=== PATIENT | male | born 1935 | race Caucasian/White ===

== ENCOUNTER 2017-02-11 11:49 | Emergency (ER) | payer MEDICARE, MEDICAID ==
[~2017-02-11] VITALS: Ht 177.8 cm; Wt 74.0 kg
[2017-02-11 12:08] VITALS: BP 103/72
== END 2017-02-11 13:09 | disposition home or self-care (01) ==
LOC: ER 12:03
DX: M67.431 Ganglion, right wrist (principal)
CPT/HCPCS: 73110; 99284; A4606; Z7610

== ENCOUNTER 2018-04-01 16:08 | Inpatient (IN) | payer MEDICARE, MEDICAID ==
[~2018-04-01] VITALS: Ht 162.6 cm; Wt 68.1 kg
--- NOTE | 2018-04-01 16:28 | NUR ---
PT BIB FAMILYC/O JAUNDICE NOTED X 3-4 DAYS AGO. C/O GENERALIZED WEAKNDESS, DIARRHEA, PT IS AAOX3, NOT IN RESPIRATORY DISTRESS, V/S STABLE KEPT RESTED AND COMFORTABLE.
--- NOTE | 2018-04-01 16:40 | NUR ---
PT SEEN AND EXAMINED BY DR. HUSSEIN.
--- NOTE | 2018-04-01 16:50 | NUR ---
LABS DRAWNED BY PHLEB.
[2018-04-01 16:52] LABS: BASOPHILS % (AUTO) 0.4 % (0.0-2.0); EOSINOPHILS % (AUTO) 0.9 % (0.0-6.0); HEMATOCRIT 37 % (39-51); HEMOGLOBIN 12.8 g/dL (13.5-17.5); LYMPHOCYTES % (AUTO) 18.3 % (20.0-44.0); MEAN CORPUSCULAR HGB CONC 35 g/dl (31.0-36.0); MEAN CORPUSCULAR VOLUME 95 fL (80-96); MONOCYTES # (AUTO) 0.6 /CMM (0.1-1.30); MONOCYTES % (AUTO) 11.8 % (2.0-12.0); NEUTROPHILS # (AUTO) 3.6 /CMM (1.8-8.9); NEUTROPHILS % (AUTO) 68.6 % (43.0-81.0); PLATELET COUNT (AUTO) 240 /CMM (150-450); RED BLOOD CELL COUNT(AUTO) 3.88 MIL/uL (4.5-6.0); WHITE BLOOD COUNT (AUTO) 5.3 K/uL (4.3-11.0)
[2018-04-01] MEDS ORDERED: IV NS 0.9% 500 ML BAG IV ONE (17:00)
--- NOTE | 2018-04-01 17:00 | NUR ---
TECH AT BEDSIDE FOR US.
[2018-04-01 17:02] LABS: CARBON DIOXIDE 29 mmol/L (21-32); CHLORIDE 102 mmol/L (98-107); GLUCOSE 109 mg/dL (74-106); POTASSIUM 3.8 mmol/L (3.5-5.1); SODIUM SERUM 137 mmol/L (136-145); UREA NITROGEN, BLOOD 21 mg/dL (7-18)
[2018-04-01 17:08] LABS: ALANINE AMINOTRANSFERASE 237 U/L (12-78); ALBUMIN 3.1 g/dL (3.4-5.0); ASPARTATE AMINOTRANSFERASE 176 U/L (15-37); BILIRUBIN,DIRECT 8.3 mg/dL (0.0-0.2); BILIRUBIN,TOTAL 9.7 mg/dL (0.2-1.0); LIPASE 275 U/L (73-393); TOTAL PROTEIN, SERUM 7.4 g/dL (6.4-8.2)
[2018-04-01] MEDS ORDERED: CT SWABBABLE VALVE TRANS SET 1 EA INFUS.SET MC ONE (17:23)
[2018-04-01] MEDS ORDERED: IOHEXOL-300 100 ML VIAL IV ONE (17:23)
[2018-04-01] MEDS ORDERED: IV NS 0.9% 250 ML IV ONE (17:23)
[2018-04-01 18:25] LABS: ALKALINE PHOSPHATASE 1070 U/L (46-116)
--- NOTE | 2018-04-01 19:28 | NUR ---
REPORT GIVEN TO ZENA LEAL FOR SUSAN.
[2018-04-01] MEDS ORDERED: Z GUARD REMEDY 2 OZ OINT TP PRN (20:30)
[2018-04-01] MEDS ORDERED: MORPHINE SULFATE INJ 2 MG/ML DISP.SYRIN IV PRN (20:30)
[2018-04-01] MEDS ORDERED: MAG HYDROX/AL HYDROX/SIMETH 30 ML UDC PO PRN (20:30)
[2018-04-01] MEDS ORDERED: ZOLPIDEM TARTRATE 5 MG TABLET PO PRN (20:30)
[2018-04-01] MEDS ORDERED: ACETAMINOPHEN 325 MG TABLET PO PRN (20:30)
[2018-04-01] MEDS ORDERED: MAGNESIUM HYDROXIDE 30 ML UDC PO PRN (20:30)
[2018-04-01] MEDS ORDERED: HYDROCODONE/APAP 5/325MG 1 EACH TABLET PO PRN (20:30)
[2018-04-01] MEDS ORDERED: INSULIN REGULAR, HUMAN 100 UNIT/ML 3 ML VIAL SQ PRN (20:30)
[2018-04-01] MEDS ORDERED: DEXTROSE 50%-WATER 50 ML DISP.SYRIN IV PRN (20:30)
[2018-04-01] MEDS ORDERED: ONDANSETRON HCL/PF 4 MG/2 ML VIAL IVP PRN (20:30)
[2018-04-01] MEDS ORDERED: CLONIDINE HCL 0.1 MG TABLET PO PRN (20:30)
--- NOTE | 2018-04-01 21:05 | NUR ---
REPROT GIVEN TO SAURAV FREITAS.
[2018-04-01 22:00] VITALS: BP 145/75
--- NOTE | 2018-04-01 22:00 | NUR ---
MS RN NOTES RECEIVED PATIENT FROM ED VIA GURNEY IN STABLE CONDITION. PATIENT AWAKE, A/O X4, SWISS SPEAKING. NO C/O PAIN OR DISCOMFORT. PERIPHERAL LINE INTACT AND PATENT. PATIENT ACCOMPANIED BY FAMILY. BED IN LOW LOCK SETTING. CALL LIGHT AND ALL BELONGINGS KEPT NEAR BEDSIDE. WILL CONTINUE TO MONITOR.
[2018-04-01] MEDS: IV NS 0.9% 1,000 ML IV PRN (22:26)
[2018-04-01] MEDS: ENOXAPARIN SODIUM 40 MG/0.4 ML DISP.SYRIN SQ SCH (23:30)
--- NOTE | 2018-04-01 23:39 | NUR ---
PATIENT CHANGED MIND AND DID NOT WANT PRN MORPHINE 2MG AFTER MEDICATION PULLED FROM PYXIS. MEDICATION WASTED WITH ANOTHER RN.
[2018-04-01] MEDS: BLOOD SUGAR DIAGNOSTIC 1 EACH STRIP IN SCH (23:46)
--- NOTE | 2018-04-02 06:00 | NUR ---
MS RN NOTES PATIENT ASLEEP IN BED WITH NO DISTRESS NOTED. CALL LIGHT WITHIN REACH. DTR AT BEDSIDE. NO C/O PAIN OR DISCOMFORT. NPO STATUS OBSERVED AND MAINTAINED AT ALL TIMES. PERIPHERAL LINE INTACT AND RUNNING NS 0.9% @ 100ML/HR. BED IN LOW LOCK SETTING. ROOM FREE OF CLUTTER AND ALL BELONGINGS KEPT NEAR BEDSIDE. WILL ENDORSE TO ONCOMING SHIFT.
[2018-04-02] MEDS: BLOOD SUGAR DIAGNOSTIC 1 EACH STRIP IN SCH ×3 (06:21→17:09)
[2018-04-02] MEDS: PANTOPRAZOLE 40 MG VIAL IV SCH (07:30)
--- NOTE | 2018-04-02 07:31 | NUR ---
MS RN OPENING NOTES RECEIVED PATIENT AWAKE, ALERT AND ORIENTED X4. ON ROOM AIR, WITH NO SOB NOTED. NOT IN ANY PAIN OR DISTRESS NOTED AND STATED. ON IVF NS 100 ML/HR TO LFA 18G, INTACT AND PATENT, WITH NO INFILTRATION NOTED. NPO AT THIS TIME, FOR GI AND ONCOLOGY CONSULT. SAFETY MEASURES IN PLACE. BED IN LOW LOCKED POSITION WITH SR X2. PT ABLE TO ASK FOR ASSISTANCE. ON SEIZURE PRECAUTION. WILL CONTINUE TO MONITOR.
[2018-04-02 07:33] LABS: HEMATOCRIT 35 % (39-51); HEMOGLOBIN 11.9 g/dL (13.5-17.5); MEAN CORPUSCULAR HGB CONC 34 g/dl (31.0-36.0); MEAN CORPUSCULAR VOLUME 95 fL (80-96); PLATELET COUNT (AUTO) 207 /CMM (150-450); RED BLOOD CELL COUNT(AUTO) 3.65 MIL/uL (4.5-6.0); WHITE BLOOD COUNT (AUTO) 5.6 K/uL (4.3-11.0)
[2018-04-02 07:47] LABS: CHOLESTEROL 213 mg/dL (<200); LDL 156 mg/dL (0-99); TRIGLYCERIDES 99 mg/dL (30-150)
[2018-04-02 07:49] LABS: HDL CHOLESTEROL < 10 mg/dL (40-60)
[2018-04-02 07:54] LABS: ALANINE AMINOTRANSFERASE 192 U/L (12-78); ALBUMIN 2.7 g/dL (3.4-5.0); ALKALINE PHOSPHATASE 959 U/L (46-116); ASPARTATE AMINOTRANSFERASE 152 U/L (15-37); BILIRUBIN,TOTAL 9.4 mg/dL (0.2-1.0); CALCIUM, SERUM 8.6 mg/dL (8.5-10.1); CARBON DIOXIDE 23 mmol/L (21-32); CHLORIDE 103 mmol/L (98-107); CREATININE 0.8 mg/dL (0.6-1.3); GLUCOSE 93 mg/dL (74-106); MAGNESIUM 1.7 mg/dL (1.8-2.4); PHOSPHORUS 2.2 mg/dL (2.5-4.9); POTASSIUM 3.6 mmol/L (3.5-5.1); SODIUM SERUM 139 mmol/L (136-145); TOTAL PROTEIN, SERUM 6.4 g/dL (6.4-8.2); UREA NITROGEN, BLOOD 16 mg/dL (7-18)
[2018-04-02 08:08] VITALS: BP 115/64
[2018-04-02] MEDS: IV NS 0.9% 1,000 ML IV PRN (08:45)
[2018-04-02 08:50] LABS: BAND % (MANUAL) 1 % (0.0-5.0); LYMPHOCYTES % (MANUAL) 17 % (16-48); MONOCYTES % (MANUAL) 8 % (0-11.0); NEUTROPHILS % (MANUAL) 74 (42-76)
[2018-04-02] MEDS: Magnesium 1GM/D5W 100ML PREMIX 100 ML IV SCH ×2 (09:35→10:53)
[2018-04-02 09:44] LABS: APPEARANCE,URINE SL CLOUDY (CLEAR); BILIRUBIN,URINE 3+ (NEGATIVE); BLOOD, URINE TRACE Ery/uL (NEGATIVE); COLOR,URINE YELLOW (YELLOW); KETONES,URINE TRACE (NEGATIVE); LEUKOCYTE ESTERASE ,URINE NEGATIVE (NEGATIVE); NITRITE, URINE NEGATIVE (NEGATIVE); PH,URINE 6.5 (5.0-8.0); PROTEIN,URINE TRACE mg/dl (NEGATIVE); UGLUCOSE NEGATIVE (NEGATIVE)
[2018-04-02 09:52] LABS: BACTERIA,URINE None seen /HPF (None Seen); RBC,URINE 0-2 /HPF (0-2); SQUAMOUS EPITHELIAL CELL,UR Few /HPF (None Seen); WBC,URINE NONE SEEN /HPF (0-3)
--- NOTE | 2018-04-02 10:20 | NUR ---
RN NOTES PT FOR MRCP WITHOUT CONTRAST. EXPLAINED PROCEDURE TO PT AND DAUGHTER, BOTH VERBALIZED UNDERSTANDING. CHECKLIST FOR MRCP OBTAINED FROM PT AND DAUGHTER.
--- NOTE | 2018-04-02 12:00 | NUR ---
RN NOTES PT'S MAGNESIUM LEVEL NOTED AT 1.7. REPLACED WITH 2BAGS OF MAGNESIUM 1GM/100ML; TOTAL OF 2GMS. WILL CONTINUE TO MONITOR.
--- NOTE | 2018-04-02 15:01 | NUR ---
RN NOTES PT WITH ORDER OF MRI OF ABDOMEN WITH CONTRAST. EXPLAINED PROCEDURE TO PT AND FAMILY, VERBALIZED UNDERSTANDING. CONSENT AND CONTRAST ADMINISTRATION QUESTIONNAIRE SIGNED BY SON/BIANCA DEVANG. WILL CONTINUE TO MONITOR.
[2018-04-02 16:00] VITALS: BP 117/66
[2018-04-02] MEDS: POTASSIUM PHOSPHATE MM 7.5 MMOL in IV D5W 100 ML IV SCH ×2 (16:09→19:22)
--- NOTE | 2018-04-02 18:50 | NUR ---
MS RN CLOSING NOTES RECEIVED PATIENT AWAKE, ALERT AND ORIENTED X4. ON ROOM AIR, WITH NO SOB NOTED. NOT IN ANY PAIN OR DISTRESS NOTED AND STATED. ON IVF NS 100 ML/HR TO LFA 18G, INTACT AND PATENT, WITH NO INFILTRATION NOTED. NPO AT THIS TIME, FOR MRI WITH CONTRAST OF ABDOMEN AT 1930. SAFETY MEASURES IN PLACE. BED IN LOW LOCKED POSITION WITH SR X2. PT ABLE TO ASK FOR ASSISTANCE. PHOSPHORUS LEVEL AT 2.2, 1BAG GIVEN OF POTASSIUM PHOSPHATE. ORDER TO GIVE 2 BAGS; SECOND BAG WILL ENDORSE TO INCOMING AIRCRAFT ARMAMENT MECHANIC NURSE, AND FOR SUSAN.
--- NOTE | 2018-04-02 19:30 | NUR ---
MS LEEANNE INITIAL NOTES SEEN PT IN HIS ROOM WITH FAMILY AT THE BEDSIDE. BILL SORTER CAME AND READY TO AN/SYQ 13 NAV/C2 OPERATOR THE PT FOR MRI WITH CONTRAST. PT DENIES ANY PAIN OR ANY DISCOMFORT. WILL CONTINUE MONITORING.
[2018-04-02 20:00] VITALS: BP 135/65
--- NOTE | 2018-04-02 20:15 | NUR ---
MS LEEANNE NOTES PATIENT BACK TO HIS ROOM AWAKE AND ALERT DENIES ANY PAIN OR ANY DISCOMFORT ,FAMILY AT THE BEDSIDE ASKING FOR THE RESULT I TOLD THEM THAT STILL PENDING AND USUALLY THE DOCTOR WILL THE ONE WHO TELL THE RESULT AND I TOLD THEM THAT HIDES AND SKINS COLORER MD WILL COME UP AND TALK TO YOU . FAMILY STATED "OK THANK YOU ". RESUMED IVF NS AT 100ML/HR ORDERED. KEPT HIM WARM AND COMFORTABLE AT ALL TIMES. WILL CONTINUE MONITORING. PLACE CALL LIGHT AT REACH.
[2018-04-02] MEDS ORDERED: ATEN50TA PO (21:17)
[2018-04-02] MEDS ORDERED: PANT40TA4 PO (21:17)
[2018-04-02] MEDS ORDERED: GABA-534 PO (21:17)
[2018-04-02] MEDS: ENOXAPARIN SODIUM 40 MG/0.4 ML DISP.SYRIN SQ SCH (21:31)
--- NOTE | 2018-04-02 22:02 | NUR ---
RESOURCE RN NOTES: APPROACHED BY ASSIGNED MOTORIZED SQUAD SERGEANT, TO RESTART NEW IV. WENT TO PT'S ROOM, NOTED LEFT FA IV WITH REDNESS AND WHEEL, PT ALSO COMPLAINING THE SITE WAS PAINFUL. REMOVED THE IV AND APPLIED PRESSURED DRESSING TO STOP BLEEDING. RESTARTED NEW IV ACCESS ON RFA USING G20, BLOOD RETURN NOTED, LINE/ACCESS SECURED WITH TRANSPARENT DRESSING AND PROPER LABELS ATTACHED.
[2018-04-03] MEDS: BLOOD SUGAR DIAGNOSTIC 1 EACH STRIP IN SCH ×4 (00:26→17:18)
--- NOTE | 2018-04-03 00:31 | NUR ---
MS LEEANNE NOTES BLOOD SUGAR CHECKED 85, NO SIGNS OF HYPO GLYCEMIA NOTED. IVF NS AT 100ML/HR INFUSING AT THIS TIME. KEPT HIM WARM AND COMFORTABLE AT ALL TIMES. DAUGHTER AT THE BEDSIDE. WILL CONTINUE MONITORING. PLACE CALL LIGHT AT REACH.
[2018-04-03] MEDS: IV NS 0.9% 1,000 ML IV PRN ×2 (03:18→14:41)
[2018-04-03 07:17] LABS: BASOPHILS % (AUTO) 0.4 % (0.0-2.0); EOSINOPHILS % (AUTO) 2.1 % (0.0-6.0); HEMATOCRIT 35 % (39-51); HEMOGLOBIN 11.9 g/dL (13.5-17.5); LYMPHOCYTES % (AUTO) 24.4 % (20.0-44.0); MEAN CORPUSCULAR HGB CONC 35 g/dl (31.0-36.0); MEAN CORPUSCULAR VOLUME 94 fL (80-96); MONOCYTES # (AUTO) 0.5 /CMM (0.1-1.30); NEUTROPHILS # (AUTO) 2.4 /CMM (1.8-8.9); NEUTROPHILS % (AUTO) 60.1 % (43.0-81.0); PLATELET COUNT (AUTO) 198 /CMM (150-450); RED BLOOD CELL COUNT(AUTO) 3.65 MIL/uL (4.5-6.0)
[2018-04-03 07:25] LABS: ALANINE AMINOTRANSFERASE 188 U/L (12-78); ALBUMIN 2.4 g/dL (3.4-5.0); ALKALINE PHOSPHATASE 902 U/L (46-116); ASPARTATE AMINOTRANSFERASE 157 U/L (15-37); BILIRUBIN,TOTAL 9.9 mg/dL (0.2-1.0); CALCIUM, SERUM 8.5 mg/dL (8.5-10.1); CARBON DIOXIDE 25 mmol/L (21-32); CHLORIDE 104 mmol/L (98-107); CREATININE 0.8 mg/dL (0.6-1.3); GLUCOSE 85 mg/dL (74-106); POTASSIUM 3.7 mmol/L (3.5-5.1); SODIUM SERUM 137 mmol/L (136-145); TOTAL PROTEIN, SERUM 5.9 g/dL (6.4-8.2); UREA NITROGEN, BLOOD 12 mg/dL (7-18)
--- NOTE | 2018-04-03 07:30 | NUR ---
MS ELECTRICIAN THIRD CLOSING NOTES PT WOKE UP AND SEEMS COMFORTABLE . DENIES ANY PAIN OR ANY DISCOMFORT. STABLE TRISTAN THE NIGHT AND SLEPT WELL. NO SIGNS OF ANY ACUTE DISTRESS NOTED. KEPT HIM WARM AND COMFORTABLE AT ALL TIMES. HE DID HIS OWN MORNING CARE WITH SOME ASSIST. ENDORSE TO AM NURSE. DAUGHTER AT THE BEDSIDE.
[2018-04-03 07:36] LABS: FERRITIN 669 ng/mL (8-388)
--- NOTE | 2018-04-03 07:43 | NUR ---
MS RN OPENING NOTES RECEIVED PATIENT IN STABLE CONDITION. IN NO APPARENT DISTRESS. BEDSIDE RAILS ARE UPX2. BED IS LOCKED AND LOWERED. CALL LIGHT IS WITHIN REACH. IV LINE IS INTACT AND PATENT. WILL CONTINUE TO MONITOR PATIENT.
[2018-04-03 08:00] VITALS: BP 115/60
[2018-04-03 08:05] LABS: IRON, SERUM 112 ug/dl (50-175); TOTAL IRON BINDING CAPACITY 205 ug/dl (250-450)
[2018-04-03] MEDS: PANTOPRAZOLE 40 MG VIAL IV SCH (08:26)
[2018-04-03] MEDS ORDERED: FOLIC ACID 1 MG TABLET PO SCH (09:00)
[2018-04-03 16:00] VITALS: BP 148/79
--- NOTE | 2018-04-03 18:19 | NUR ---
MS RN CLOSING NOTES PATIENT IS IN STABLE CONDITION. IN NO APPARENT DISTRESS. BEDSIDE RAILS ARE UPX2. BED IS LOCKED AND LOWERED. CALL LIGHT IS WITHIN REACH. IV LINE IS INTACT AND PATENT. ALL NEEDS WERE MET. WILL ENDORSE CARE TO FINGERNAIL SCULPTURER NURSE FOR SUSAN.
--- NOTE | 2018-04-03 19:30 | NUR ---
RN NOTES RECEIVED PT. AWAKE ON BED, DAUGHTER AT BEDSIDE, A/OX4, AMBULATORY, MONEGASQUE SPEAKING, WAITING FOR THE AMBULANCE, , DENIES PAIN, NO SOB, CALL LIGHT WITHIN REACH, [id number], CONTINUE TO MONITOR
[2018-04-03 20:00] VITALS: BP_SYST 116; BP_SYST 119; BP_DIAS 68
--- NOTE | 2018-04-03 20:20 | NUR ---
RN NOTES FOLLOW -UP AMBULANCE, THEY ARE ON THEIR WAY
[2018-04-03] MEDS ORDERED: GADODIAMIDE 2.5 MMOL/5 ML VIAL IJ ONE (20:49)
--- NOTE | 2018-04-03 20:50 | NUR ---
RN NOTES PT. LEFT VIA AMBULANCE, LATERAL TRANSFER TO [facility], DAUGHTER AT BEDSIDE, DENIES PAIN, NO SOB, LATERAL TRANSFER INSTRUCTION WAS GIVEN , PT. NEEDS ATTENDED
[2018-04-04 13:09] LABS: *SPE ALBUMIN 2.7 g/dL (2.9-4.4); *SPE ALPHA-1-GLOBULIN 0.2 g/dL (0.0-0.4); *SPE ALPHA-2-GLOBULIN 0.7 g/dL (0.4-1.0); *SPE BETA GLOBULIN 0.8 g/dL (0.7-1.3); *SPE GLOBULIN, TOTAL 2.6 g/dL (2.2-3.9); *SPE M-SPIKE Not Observed g/dL (Not Observed); *SPEGAMMA GLOBULIN 0.9 g/dL (0.4-1.8); IMMUNOGLOBULIN A, SERUM 211 mg/dL (61-437); IMMUNOGLOBULIN G, SERUM 1022 mg/dL (700-1600); IMMUNOGLOBULIN M, SERUM 71 mg/dL (15-143)
[2018-04-05 02:11] LABS: AFP, TUMOR MARKER 1.9 ng/mL (0.0-8.3); CARBOHYDRATE AG 19-9 224 U/mL (0-35)
[2018-04-16] MEDS ORDERED: TAMS-12 PO (12:43)
[2018-04-16] MEDS ORDERED: PANT40TA2 PO (12:43)
[2018-04-16] MEDS ORDERED: Midodrine Hcl (5MG) PO (12:43)
[2018-04-16] MEDS ORDERED: VORI200T PO (12:43)
[2018-04-16] MEDS ORDERED: AMOX-430 PO (13:19)
== END 2018-04-03 20:50 | disposition short-term general hospital (02) | DRG 445 ==
LOC: ER 16:09 → MED 21:16
PROVIDERS: ADMIT Nurse Practitioner Acute Care
DX: K83.1 Obstruction of bile duct (principal); E44.1 Mild protein-calorie malnutrition; D68.59 Other primary thrombophilia; D63.8 Anemia in other chronic diseases classified elsewhere; E86.0 Dehydration; I10 Essential (primary) hypertension; K21.9 Gastro-esophageal reflux disease without esophagitis; R53.1 Weakness; E88.09 Other disorders of plasma-protein metabolism, not elsewhere classified; Z68.25 Body mass index [BMI] 25.0-25.9, adult; R73.9 Hyperglycemia, unspecified; R74.8 Abnormal levels of other serum enzymes; R93.5 Abnormal findings on diagnostic imaging of other abdominal regions, including retroperitoneum
CPT/HCPCS: 36415; 71045-TC; 74181-TC; 74183-TC; 76700-TC; 80048-TC; 80053-TC; 80061-TC; 80074; 80076-TC; 81000-TC; 82105; 82378; 82728-TC; 82784; 82962-TC; 83540-TC; 83690-TC; 83735-TC; 84100-TC; 84155; 84165; 84484-TC; 85025-TC; 85730-TC; 86301; 86334; 87081-TC; A9579; C9113; G0378; J1650; J1815; J2270; J3475; J3490; J7030; J7040; J7050; J7060; Q9967

== ENCOUNTER 2018-04-12 15:29 | Inpatient (IN) | payer MEDICARE, MEDICAID ==
[~2018-04-12] VITALS: Ht 172.7 cm; Wt 68.5 kg
[~2018-04-12 15:29] MED LIST: ATEN50TA PO; GABA-534 PO; PANT40TA4 PO
--- NOTE | 2018-04-12 20:05 | NUR ---
MS RN NOTE RECEIVED REPORT FROM ZENA BARTHOLOMEW FROM [facility].
[2018-04-12 21:21] VITALS: BP 111/51
--- NOTE | 2018-04-12 21:21 | NUR ---
MS RN NOTE RECEIVED PT IN STABLE CONDITION VIA [place]. ACCOMPANIED BY AMBULANCE PERSONNEL AND SON. PT IS A&O X3-4 LATVIAN SPEAKING, UNDERSTANDS LITTLE SOMALI. NO SIGNS OF SOB OR DISTRESS. NO C/O PAIN. BODY CHECK DOCUMENTED AND PHOTOS PLACED IN CHART. ALL BELONGINGS ACCOUNTED AND SIGNED FOR. SAFETY PRECAUTIONS IN PLACE: BED LOW, LOCKED, UPPER RAILS UP, CALL LIGHT WITHIN REACH. DR. NIESHA MINOR NOTIFIED OF PT'S ARRIVAL. WILL CONT TO MONITOR.
[2018-04-12] MEDS ORDERED: PANT40TA4 PO (21:42)
[2018-04-12] MEDS ORDERED: ATEN50TA PO (21:42)
[2018-04-12] MEDS ORDERED: GABA-534 PO (21:42)
[2018-04-12] MEDS ORDERED: MAGNESIUM HYDROXIDE 30 ML UDC PO PRN (23:00)
[2018-04-12] MEDS ORDERED: ACETAMINOPHEN 325 MG TABLET PO PRN (23:00)
[2018-04-12] MEDS ORDERED: ONDANSETRON HCL/PF 4 MG/2 ML VIAL IVP PRN (23:00)
[2018-04-12] MEDS ORDERED: MAG HYDROX/AL HYDROX/SIMETH 30 ML UDC PO PRN (23:00)
[2018-04-12] MEDS ORDERED: HYDROMORPHONE 1 MG/1 ML DISP.SYRIN IV PRN (23:00)
[2018-04-12] MEDS: IV NS 0.9% 1,000 ML IV PRN (23:44)
[2018-04-13] MEDS ORDERED: MEROPENEM 500 MG VIAL IV ONE (00:48)
[2018-04-13] MEDS ORDERED: MEROPENEM 500 MG in IV NS 0.9% 50 ML IV SCH (01:00)
[2018-04-13] MEDS ORDERED: VANCOMYCIN 1 GM VIAL ONE (01:01)
[2018-04-13] MEDS ORDERED: VANCOMYCIN 1 GM in IV NS 0.9% 250 ML IV ONE (02:00)
--- NOTE | 2018-04-13 06:19 | NUR ---
MS RN NOTE PT IN STABLE CONDITION A&O X3-4 NAMIBIAN SPEAKING, UNDERSTANDS LITTLE UZBEK. NO SIGNS OF SOB OR DISTRESS. NO C/O PAIN. CANALES PATENT AND INTACT WITH ADEQUATE URINE DRAINING. BILARY DUCT X2 PATENT AND INTACT DRESSING SITE INTACT WITH NO LEAKAGE NOTED. SAFETY PRECAUTIONS IN PLACE: BED LOW, LOCKED, UPPER RAILS UP, CALL LIGHT WITHIN REACH. DR. NIESHA MINOR NOTIFIED OF PT'S ARRIVAL. WILL CONT TO MONITOR. AND ENDORSE TO NEXT SHIFT FOR SUSAN.
[2018-04-13 06:44] LABS: ALANINE AMINOTRANSFERASE 57 U/L (12-78); ALBUMIN 1.7 g/dL (3.4-5.0); ALKALINE PHOSPHATASE 385 U/L (46-116); ASPARTATE AMINOTRANSFERASE 45 U/L (15-37); BILIRUBIN,DIRECT 5.5 mg/dL (0.0-0.2); BILIRUBIN,TOTAL 6.9 mg/dL (0.2-1.0); CALCIUM, SERUM 8.1 mg/dL (8.5-10.1); CARBON DIOXIDE 27 mmol/L (21-32); CHLORIDE 103 mmol/L (98-107); CREATININE 0.7 mg/dL (0.6-1.3); GLUCOSE 97 mg/dL (74-106); MAGNESIUM 1.8 mg/dL (1.8-2.4); PHOSPHORUS 2.9 mg/dL (2.5-4.9); POTASSIUM 3.9 mmol/L (3.5-5.1); SODIUM SERUM 136 mmol/L (136-145); TOTAL PROTEIN, SERUM 5.2 g/dL (6.4-8.2); UREA NITROGEN, BLOOD 15 mg/dL (7-18)
[2018-04-13 06:45] LABS: BASOPHILS # (AUTO) 0.1 /CMM (0.0-0.2); BASOPHILS % (AUTO) 0.6 % (0.0-2.0); EOSINOPHILS % (AUTO) 1.8 % (0.0-6.0); HEMATOCRIT 35 % (39-51); HEMOGLOBIN 11.9 g/dL (13.5-17.5); LYMPHOCYTES % (AUTO) 10.9 % (20.0-44.0); MEAN CORPUSCULAR HGB CONC 34 g/dl (31.0-36.0); MEAN CORPUSCULAR VOLUME 93 fL (80-96); MONOCYTES # (AUTO) 0.8 /CMM (0.1-1.30); MONOCYTES % (AUTO) 8.4 % (2.0-12.0); NEUTROPHILS # (AUTO) 7.4 /CMM (1.8-8.9); NEUTROPHILS % (AUTO) 78.3 % (43.0-81.0); PLATELET COUNT (AUTO) 185 /CMM (150-450); RED BLOOD CELL COUNT(AUTO) 3.75 MIL/uL (4.5-6.0); WHITE BLOOD COUNT (AUTO) 9.4 K/uL (4.3-11.0)
[2018-04-13] MEDS ORDERED: FEE PK DOSING 1 MIN EA MC ONE (07:43)
[2018-04-13 07:58] LABS: BAND % (MANUAL) 2 % (0.0-5.0); EOSINOPHILS % (MANUAL) 3 % (0-4); LYMPHOCYTES % (MANUAL) 9 % (16-48); MONOCYTES % (MANUAL) 10 % (0-11.0); NEUTROPHILS % (MANUAL) 76 (42-76)
[2018-04-13 08:00] VITALS: BP 112/55
--- NOTE | 2018-04-13 08:00 | NUR ---
PT IN STABLE CONDITION A&O X4. PATIENT IS SAMMARINESE SPEAKING, DAUGHTER AT BEDSIDE. PATIENT SHOWS NO SIGNS OF SOB OR DISTRESS. PATIENT REPORTS 0/10 PAIN . CANALES PATENT AT INTACT WITH ADEQUATE URINE DRAINING. BILIARY DUCT X2 PATENT AND INTACT. BILIARY CATHETER DRAINAGE IS 375 ML. SAFETY PRECAUTIONS ARE IN PLACE: BED LOW, LOCKED, UPPER RAILS UP, CALL LIGHT WITHIN REACH. ALL CURRENT NEEDS ARE MET. WILL CONTINUE TO MONITOR PATIENT.
[2018-04-13] MEDS: PANTOPRAZOLE 40 MG TABLET.DR PO SCH (09:04)
[2018-04-13] MEDS: MEROPENEM 500 MG in IV NS 0.9% 100 ML IV SCH ×2 (09:35→21:16)
[2018-04-13] MEDS: VANCOMYCIN 0.75 GM in IV D5W 250 ML IV SCH (14:27)
--- NOTE | 2018-04-13 14:49 | NUR ---
PT IN STABLE CONDITION A&O X4. PATIENT IS BAHRAINI SPEAKING, DAUGHTER AT BEDSIDE. PATIENT SHOWS NO SIGNS OF SOB OR DISTRESS. PATIENT REPORTS 0/10 PAIN . CANALES PATENT AT INTACT WITH ADEQUATE URINE DRAINING. BILIARY DUCT X2 PATENT AND INTACT. BILIARY CATHETER DRAINAGE IS 375 ML. SAFETY PRECAUTIONS ARE IN PLACE: BED LOW, LOCKED, UPPER RAILS UP, CALL LIGHT WITHIN REACH. ALL CURRENT NEEDS ARE MET. WILL CONTINUE TO MONITOR AND ENDORSE TO NEXT SHIFT FOR SUSAN.
[2018-04-13 16:00] VITALS: BP 123/62
--- NOTE | 2018-04-13 17:22 | NUR ---
PT RESTING IN BED WITH SON AT BEDSIDE.DENIES ANY PAIN OR DISTRESS.WITH ONGOING IVF OF NS AT 75ML/HR INFUSING WELL.WITH 2 BILIARY CATH EMPTIED WITH 800 ML BROWN LIQUID OUTPUT.AWAITING TO HAVE ID CONSULT DONE.WILL MONITOR.PT EATING SOFT FOOD -BEING FED BY HIS SON,HOB ELEVATED WITH ASPIRATION PRECAUTIONS. WILL MONITOR TOLERANCE.
--- NOTE | 2018-04-13 17:53 | NUR ---
WEIGH THE PT VIA BED SCALE PER MUSIC PASTOR'S REQUEST-PT WEIGHS 151 LBS.
[2018-04-13] MEDS: IV NS 0.9% 1,000 ML IV PRN (18:53)
--- NOTE | 2018-04-13 18:57 | NUR ---
PT ATE 80% OF THE DINNER(SOFT DIET) TOLERATING WELL.DENIES ANY PAIN OR DISTRESS.REMOVED O2 CANNULA SAYING HE DOESN'T NEED IT AND HE IS NOT IN ANY DISTRESS. FAMIYL AT BEDSIDE.CALL LIGHT PLACED WITHIN REACH.
--- NOTE | 2018-04-13 19:15 | NUR ---
MS RN NOTE RECEIVED PT IN STABLE CONDITION. A&O X3-4, MARTINIQUAIS SPEAKING. FAMILY AT BEDSIDE. DANIEL PICC LINE PATENT AND INTACT INFUSING NS @ 75 ML/HR. CANALES CATH. PATENT AND INTACT INFUSING ADEQUATE AMOUNT OF URINE. BOTH BILIARY CATH DRAINING ADEQUATELY. DRESSING INTACT WITH NO SIGNS OF LEAKAGE. NO SIGNS OF SOB OR DISTRESS. SAFETY PRECAUTIONS IN PLACE: BED LOW, LOCKED, UPPER RAILS UP, AND CALL LIGHT WITHIN REACH. WILL CONT TO MONITOR.
[2018-04-13 20:33] VITALS: BP 115/56
[2018-04-14] MEDS: VANCOMYCIN 0.75 GM in IV D5W 250 ML IV SCH (01:11)
--- NOTE | 2018-04-14 06:03 | NUR ---
MS RN NOTE PT IN STABLE CONDITION. A&O X3-4, URDU SPEAKING. DAUGHTER AT BEDSIDE. DANIEL PICC LINE PATENT AND INTACT INFUSING NS @ 75 ML/HR. CANALES CATH. PATENT AND INTACT INFUSING ADEQUATE AMOUNT OF URINE. BOTH BILIARY CATH DRAINING ADEQUATELY. DRESSING INTACT WITH NO SIGNS OF LEAKAGE. NO SIGNS OF SOB OR DISTRESS. SAFETY PRECAUTIONS IN PLACE: BED LOW, LOCKED, UPPER RAILS UP, AND CALL LIGHT WITHIN REACH. WILL CONT TO MONITOR AND ENDORSE TO NEXT SHIFT FOR SUSAN.
[2018-04-14 06:27] LABS: HEMATOCRIT 31 % (39-51); HEMOGLOBIN 10.9 g/dL (13.5-17.5); MEAN CORPUSCULAR HGB CONC 35 g/dl (31.0-36.0); MEAN CORPUSCULAR VOLUME 93 fL (80-96); PLATELET COUNT (AUTO) 196 /CMM (150-450); RED BLOOD CELL COUNT(AUTO) 3.37 MIL/uL (4.5-6.0); WHITE BLOOD COUNT (AUTO) 8.6 K/uL (4.3-11.0)
[2018-04-14 07:11] LABS: CALCIUM, SERUM 7.8 mg/dL (8.5-10.1); CARBON DIOXIDE 26 mmol/L (21-32); CHLORIDE 103 mmol/L (98-107); CREATININE 0.8 mg/dL (0.6-1.3); GLUCOSE 96 mg/dL (74-106); MAGNESIUM 1.7 mg/dL (1.8-2.4); PHOSPHORUS 2.4 mg/dL (2.5-4.9); POTASSIUM 3.8 mmol/L (3.5-5.1); SODIUM SERUM 136 mmol/L (136-145); UREA NITROGEN, BLOOD 12 mg/dL (7-18)
[2018-04-14 08:00] VITALS: BP 119/57
--- NOTE | 2018-04-14 08:00 | NUR ---
MS RN AM NOTE PT IN STABLE CONDITION. A&O X3-4, SLOVENIAN SPEAKING. DAUGHTER AT BEDSIDE. DANIEL PICC LINE PATENT AND INTACT INFUSING NS @ 75 ML/HR. CANALES CATH. PATENT AND INTACT INFUSING ADEQUATE AMOUNT OF TEA COLORED URINE. BOTH BILIARY CATH DRAINING ADEQUATELY WITH TEA COLORED DRAINAGE. DRESSING INTACT WITH NO SIGNS OF LEAKAGE. NO SIGNS OF SOB OR DISTRESS. SAFETY PRECAUTIONS IN PLACE: BED LOW, LOCKED, UPPER RAILS UP, AND CALL LIGHT WITHIN REACH. WILL CONT TO MONITOR
[2018-04-14] MEDS: PANTOPRAZOLE 40 MG TABLET.DR PO SCH (08:40)
[2018-04-14 09:14] LABS: LYMPHOCYTES % (MANUAL) 4 % (16-48); MONOCYTES % (MANUAL) 15 % (0-11.0); NEUTROPHILS % (MANUAL) 81 (42-76)
[2018-04-14] MEDS: MEROPENEM 500 MG in IV NS 0.9% 100 ML IV SCH ×2 (10:08→21:54)
[2018-04-14] MEDS: Magnesium 1GM/D5W 100ML PREMIX 100 ML IV SCH ×2 (11:12→12:23)
[2018-04-14] MEDS: IV NS 0.9% 1,000 ML IV PRN (15:47)
[2018-04-14 15:57] VITALS: BP 119/60
[2018-04-14] MEDS ORDERED: K PHOS NEUTRAL 250 MG TABLET PO ONE (16:00)
[2018-04-14] MEDS ORDERED: ATENOLOL 50 MG TABLET PO SCH (17:00)
[2018-04-14] MEDS: MIDODRINE HCL (5MG) 5 MG TABLET PO SCH (17:21)
--- NOTE | 2018-04-14 18:21 | NUR ---
PT RESTING IN BED WITH FAMILY MEMBERS AT BEDSIDE.DENIES ANY PAIN OR DISTRESS ON ROOM AIR.WITH ONGOING IVF OF NS AT 75 NL/HR INFUSING WELL.BILIARY CATH EMPTIED WITH 650 ML TEA COLORED LIQUID OUTPUT.CALL LIGHT PLACED WITHIN REACH.
--- NOTE | 2018-04-14 19:10 | NUR ---
MS/RN NOTES RECEIVED PT. LYING IN BED. PT. IS AWAKE, ALERT AND ORIENTED X4. BREATHING EVEN AND UNLABORED ON ROOM AIR. NO SOB, RESPIRATORY DISTRESS OR COMPLAINTS OF PAIN NOTED AT THIS TIME. PT. WITH RIGHT UPPER ARM PICC LINE PRESENT, PATENT AND INTACT ADMINISTERING TO PT. NS @ 75 ML/HR. PT. WITH LEFT FOREARM 18 GAUGE IV SALINE LOCK PRESENT, PATENT AND INTACT. PT. WITH CANALES CATHETER PRESENT, PATENT AND INTACT DRAINING TEA COLORED FLUID, PER DAYSHIFT NURSE AWARE. PT. WITH 2 BILIARY CATHETERS PRESENT, PATENT AND INTACT DRAINING DARK YELLOW COLORED FLUID WITH PARTICLES. PT. FAMILY MEMBER PRESENT AT BEDSIDE. BED LOCKED AND IN LOWEST POSITION, SIDE RAILS UP X3, BED ALARM ON, CALL LIGHT WITHIN REACH, WILL CONTINUE TO MONITOR FOR CHANGES.
[2018-04-14 20:00] VITALS: BP 121/61
[2018-04-15] MEDS: VANCOMYCIN 1 GM in IV D5W 250 ML IV SCH ×2 (01:55→14:35)
--- NOTE | 2018-04-15 06:11 | NUR ---
MS/RN NOTES PT. IS LYING IN BED RESTING, BREATHING EVEN AND UNLABORED ON ROOM AIR. NO SOB, RESPIRATORY DISTRESS OR COMPLAINTS OF PAIN NOTED AT THIS TIME AND THROUGHOUT SHIFT. PT. WITH RIGHT UPPER ARM PICC LINE PRESENT, PATENT AND INTACT ADMINISTERING TO PT. NS @ 75 ML/HR. PT. WITH LEFT FOREARM 18 GAUGE IV SALINE LOCK PRESENT, PATENT AND INTACT. PT. WITH CANALES CATHETER PRESENT, PATENT AND INTACT DRAINING TEA COLORED FLUID. PT. WITH 2 BILIARY CATHETERS PRESENT, PATENT AND INTACT DRAINING DARK YELLOW COLORED FLUID. PT. FAMILY MEMBER PRESENT AT BEDSIDE. ALL PT. NEEDS MET. PT. REFUSED TURNING AND REPOSITIONING THROUGHOUT THE NIGHT WHILE SLEEPING. ALL PT. NEEDS MET. BED LOCKED AND IN LOWEST POSITION, SIDE RAILS UP X3, BED ALARM ON, CALL LIGHT WITHIN REACH, WILL ENDORSE TO DAYSHIFT NURSE FOR CONTINUITY OF CARE.
[2018-04-15 06:52] LABS: BASOPHILS % (AUTO) 0.3 % (0.0-2.0); EOSINOPHILS % (AUTO) 1.2 % (0.0-6.0); HEMATOCRIT 31 % (39-51); HEMOGLOBIN 10.9 g/dL (13.5-17.5); LYMPHOCYTES # (AUTO) 0.9 /CMM (0.8-4.8); LYMPHOCYTES % (AUTO) 10.4 % (20.0-44.0); MEAN CORPUSCULAR HGB CONC 35 g/dl (31.0-36.0); MEAN CORPUSCULAR VOLUME 93 fL (80-96); MONOCYTES # (AUTO) 0.6 /CMM (0.1-1.30); NEUTROPHILS # (AUTO) 6.7 /CMM (1.8-8.9); NEUTROPHILS % (AUTO) 81.1 % (43.0-81.0); PLATELET COUNT (AUTO) 229 /CMM (150-450); RED BLOOD CELL COUNT(AUTO) 3.38 MIL/uL (4.5-6.0); WHITE BLOOD COUNT (AUTO) 8.2 K/uL (4.3-11.0)
--- NOTE | 2018-04-15 07:13 | NUR ---
MS RN OPENING NOTES RECEIVED PT AWAKE IN BED IN NO ACUTE SIGNS OF DISTRESS. DAUGHTER @ BEDSIDE. A/O X4, BELARUSIAN SPEAKING, NO C/O PAIN OR DISCOMFORTS @ THIS TIME. ON ROOM AIR, BREATHING EVEN AND UNLABORED. BOTH BILIARY CATHETERS IN PLACE, DRESSING CLEAN AND DRY. DANIEL PICC LINE PATENT AND INTACT, IVF OF NS @ 75 ML/HR INFUSING WELL.CANALES CATH IN PLACE DRAINING CLEAR YELLOW URINE TO URINARY BAG. SAFETY PRECAUTIONS IN PLACE. BED IN LOW LOCKED POSITION WITH UPPER RAILS UP. CALL LIGHT WITHIN REACH. WILL CONT TO MONITOR.
[2018-04-15 07:24] LABS: ALANINE AMINOTRANSFERASE 41 U/L (12-78); ALBUMIN 1.6 g/dL (3.4-5.0); ALKALINE PHOSPHATASE 346 U/L (46-116); ASPARTATE AMINOTRANSFERASE 38 U/L (15-37); BILIRUBIN,TOTAL 6.9 mg/dL (0.2-1.0); CALCIUM, SERUM 7.6 mg/dL (8.5-10.1); CARBON DIOXIDE 28 mmol/L (21-32); CHLORIDE 98 mmol/L (98-107); CREATININE 0.8 mg/dL (0.6-1.3); GLUCOSE 97 mg/dL (74-106); MAGNESIUM 2.1 mg/dL (1.8-2.4); PHOSPHORUS 2.4 mg/dL (2.5-4.9); POTASSIUM 3.6 mmol/L (3.5-5.1); SODIUM SERUM 129 mmol/L (136-145); TOTAL PROTEIN, SERUM 5.1 g/dL (6.4-8.2); UREA NITROGEN, BLOOD 13 mg/dL (7-18)
[2018-04-15] MEDS: PANTOPRAZOLE 40 MG TABLET.DR PO SCH (07:34)
[2018-04-15 07:52] VITALS: BP 111/56
[2018-04-15] MEDS: GABAPENTIN 300 MG CAPSULE PO SCH (08:19)
[2018-04-15] MEDS: MIDODRINE HCL (5MG) 5 MG TABLET PO SCH ×2 (08:19→17:00)
[2018-04-15] MEDS ORDERED: PANTOPRAZOLE 40 MG TABLET.DR PO SCH (09:00)
[2018-04-15] MEDS: MEROPENEM 500 MG in IV NS 0.9% 100 ML IV SCH ×2 (09:03→22:06)
[2018-04-15] MEDS: IV NS 0.9% 1,000 ML IV PRN (09:37)
[2018-04-15 10:41] LABS: EOSINOPHILS % (MANUAL) 1 % (0-4); LYMPHOCYTES % (MANUAL) 2 % (16-48); MONOCYTES % (MANUAL) 3 % (0-11.0); NEUTROPHILS % (MANUAL) 94 (42-76)
[2018-04-15] MEDS ORDERED: K PHOS NEUTRAL 250 MG TABLET PO ONE (13:30)
[2018-04-15 16:00] VITALS: BP 121/58
--- NOTE | 2018-04-15 16:37 | NUR ---
RN NOTES PT SEEN AND EVALUATED BY MARIA US AND ORDERED TO DC CANALES CATH. CANALES CATH REMOVED WITHOUT PROBLEM, 1100ML URINE OUTPUT NOTED. IF PT WILL NOT URINATE W/IN 6HRS, INFORM DEPUTY CITY CLERK MD AND DO BLADDER SCAN Q 4HRS. WILL CONTINUE TO MONITOR
--- NOTE | 2018-04-15 18:52 | NUR ---
RN NOTES PATIENT VOIDED 80ML X1 OF URINE JUST NOW. MARIA US ON UNIT AND MADE AWARE. WILL CONTINUE TO MONITOR.
--- NOTE | 2018-04-15 19:00 | NUR ---
MS RN CLOSING NOTES PT IN BED AWAKE AND RESTING AT MODERATE HIGH BACKREST POSITION. FAMILY @ BEDSIDE. A/O X4, KYRGYZ SPEAKING. ON ROOM AIR, BREATHING EVEN AND UNLABORED. BOTH BILIARY CATHETERS IN PLACE, DRESSING CLEAN AND DRY. DANIEL PICC LINE PATENT AND INTACT, IVF OF NS @ 75 ML/HR INFUSING WELL. ALL NEEDS AND CARE ATTENDED WELL. SAFETY MEASURES KEPT IN PLACE. BED IN LOW LOCKED POSITION WITH UPPER RAILS UP. CALL LIGHT WITHIN REACH. WILL ENDORSE TO TELECOM COORDINATOR NURSE FOR SUSAN..
--- NOTE | 2018-04-15 19:15 | NUR ---
MS/RN NOTES RECEIVED PT. LYING IN BED. PT. IS AWAKE, ALERT AND ORIENTED X4. BREATHING EVEN AND UNLABORED ON ROOM AIR. NO SOB, RESPIRATORY DISTRESS OR COMPLAINTS OF PAIN NOTED AT THIS TIME. PT. WITH RIGHT UPPER ARM PICC LINE PRESENT, PATENT AND INTACT ADMINISTERING TO PT. NS @ 100 ML/HR. PT. WITH LEFT FOREARM 18 GAUGE IV SALINE LOCK PRESENT, PATENT AND INTACT. PER DAYSHIFT NURSE PT. CANALES CATHETER REMOVED AT 1620, PT. HAS VOIDED SINCE REMOVAL CONTINUE TO MONITOR URINE OUTPUT. PT. WITH 2 BILIARY CATHETERS PRESENT, PATENT AND INTACT. PT. FAMILY MEMBER PRESENT AT BEDSIDE. BED LOCKED AND IN LOWEST POSITION, SIDE RAILS UP X3, BED ALARM ON, CALL LIGHT WITHIN REACH, WILL CONTINUE TO MONITOR FOR CHANGES.
[2018-04-15 20:00] VITALS: BP 121/63
[2018-04-15] MEDS ORDERED: TAMSULOSIN 0.4 MG CAP.SR.24H PO SCH (22:00)
[2018-04-16] MEDS: VANCOMYCIN 1 GM in IV D5W 250 ML IV SCH (01:49)
[2018-04-16] MEDS: IV NS 0.9% 1,000 ML IV PRN (01:49)
--- NOTE | 2018-04-16 06:44 | NUR ---
MS/RN NOTES PT. IS LYING IN BED RESTING, BREATHING EVEN AND UNLABORED ON ROOM AIR. NO SOB, RESPIRATORY DISTRESS OR COMPLAINTS OF PAIN NOTED AT THIS TIME AND THROUGHOUT SHIFT. PT. WITH RIGHT UPPER ARM PICC LINE PRESENT, PATENT AND INTACT ADMINISTERING TO PT. NS @ 100 ML/HR. PT. WITH LEFT FOREARM 18 GAUGE IV SALINE LOCK PRESENT, PATENT AND INTACT. PT. WITH 2 BILIARY CATHETERS PRESENT, PATENT AND INTACT, NO OUTPUT NOTED THROUGHOUT SHIFT. PT. IS VOIDING WITHOUT DIFFICULTY IN URINAL AND DIAPER. PT. FAMILY MEMBER PRESENT AT BEDSIDE. ALL PT. NEEDS MET. PT. REFUSED TURNING AND REPOSITIONING WHEN SLEEPING. BED LOCKED AND IN LOWEST POSITION, SIDE RAILS UP X3, BED ALARM ON, CALL LIGHT WITHIN REACH, WILL ENDORSE TO DAYSHIFT NURSE FOR CONTINUITY OF CARE.
[2018-04-16 07:23] LABS: BASOPHILS % (AUTO) 0.3 % (0.0-2.0); EOSINOPHILS % (AUTO) 1.3 % (0.0-6.0); HEMATOCRIT 31 % (39-51); HEMOGLOBIN 10.6 g/dL (13.5-17.5); LYMPHOCYTES # (AUTO) 0.9 /CMM (0.8-4.8); LYMPHOCYTES % (AUTO) 13.5 % (20.0-44.0); MEAN CORPUSCULAR HGB CONC 35 g/dl (31.0-36.0); MEAN CORPUSCULAR VOLUME 94 fL (80-96); MONOCYTES # (AUTO) 0.5 /CMM (0.1-1.30); MONOCYTES % (AUTO) 7.6 % (2.0-12.0); NEUTROPHILS # (AUTO) 5.4 /CMM (1.8-8.9); NEUTROPHILS % (AUTO) 77.3 % (43.0-81.0); PLATELET COUNT (AUTO) 243 /CMM (150-450); RED BLOOD CELL COUNT(AUTO) 3.27 MIL/uL (4.5-6.0)
--- NOTE | 2018-04-16 07:34 | NUR ---
RN OPENING NOTE PT WAS RECEIVED IN BED AT LOWEST AND LOCKED POSITION WITH SIDE RAILS UP X2, A/O 4 BENGALI SPEAKING, NO S/S OF PAIN OR DISTRESS CURRENTLY NOTED, BREATHING IS EVEN AND UNLABORED, IV IS PATENT AND INTACT, SAFETY PRECAUTIONS IN PLACE, CALL LIGHT WITHIN REACH, WILL MONITOR ACCORDINGLY.
[2018-04-16 07:42] LABS: CALCIUM, SERUM 8.1 mg/dL (8.5-10.1); CARBON DIOXIDE 28 mmol/L (21-32); CHLORIDE 102 mmol/L (98-107); CREATININE 0.7 mg/dL (0.6-1.3); GLUCOSE 86 mg/dL (74-106); PHOSPHORUS 2.4 mg/dL (2.5-4.9); POTASSIUM 3.9 mmol/L (3.5-5.1); SODIUM SERUM 135 mmol/L (136-145); UREA NITROGEN, BLOOD 12 mg/dL (7-18)
[2018-04-16 08:00] VITALS: BP 108/52
[2018-04-16 08:08] LABS: AFP, TUMOR MARKER 1.7 ng/mL (0.0-8.3)
[2018-04-16 08:23] VITALS: BP 108/52
[2018-04-16] MEDS: PANTOPRAZOLE 40 MG TABLET.DR PO SCH (08:23)
[2018-04-16] MEDS: MIDODRINE HCL (5MG) 5 MG TABLET PO SCH (08:23)
[2018-04-16] MEDS: GABAPENTIN 300 MG CAPSULE PO SCH (08:28)
[2018-04-16] MEDS: MEROPENEM 500 MG in IV NS 0.9% 100 ML IV SCH (09:40)
[2018-04-16] MEDS ORDERED: VORI200T PO (12:43)
[2018-04-16] MEDS ORDERED: PANT40TA2 PO (12:43)
[2018-04-16] MEDS ORDERED: TAMS-12 PO (12:43)
[2018-04-16] MEDS ORDERED: Midodrine Hcl (5MG) PO (12:43)
[2018-04-16] MEDS ORDERED: AMOX-430 PO (13:19)
--- NOTE | 2018-04-16 14:55 | NUR ---
DISCHARGE NOTE PT WAS D/C IN MEDICALLY STABLE CONDITION AT THIS TIME BACK HOME WITH HIS SON MARISOL. ALL DISCHARGE PAPERWORK, EXITCARE, AND BELONGING LIST WERE DISCUSSED, SIGNED, AND HANDED TO THE PATIENT WELL THE PRESCRIPTIONS. PT LEFT WITH ALL BELONGINGS. IV AND ID BAND WERE REMOVED AT THIS TIME. WOUND PHOTOS WERE DOCUMENTED AND PLACED IN THE CHART. ALL NEEDS WERE ATTENDED TO DURING HIS STAY. PT LEAVING AT THIS TIME IN MEDICALLY STABLE CONDITION.
== END 2018-04-16 14:55 | disposition home health service (06) | DRG 435 ==
LOC: MEDSG2 21:08
PROVIDERS: ADMIT Nurse Practitioner Acute Care; ATTEND Registered Nurse
PROC: 06L38CZ Occlusion of Esophageal Vein with Extraluminal Device, Via Natural or Artificial Opening Endoscopic (ICD-10-PCS; principal; 2018-04-13)
DX: C24.0 Malignant neoplasm of extrahepatic bile duct (principal); K83.1 Obstruction of bile duct; I85.01 Esophageal varices with bleeding; E44.0 Moderate protein-calorie malnutrition; R64 Cachexia; I85.00 Esophageal varices without bleeding; K76.6 Portal hypertension; E87.1 Hypo-osmolality and hyponatremia; K21.9 Gastro-esophageal reflux disease without esophagitis; D63.8 Anemia in other chronic diseases classified elsewhere; I10 Essential (primary) hypertension; Z68.23 Body mass index [BMI] 23.0-23.9, adult; E80.6 Other disorders of bilirubin metabolism; K31.89 Other diseases of stomach and duodenum; I70.0 Atherosclerosis of aorta
CPT/HCPCS: 36415; 71045-TC; 80048-TC; 80053-TC; 80076-TC; 80202-TC; 82105; 82378; 83735-TC; 84100-TC; 85025-TC; 87070-TC; 87081-TC; 97110-TC; 97116-TC; 97530-TC; A4216; A6253; G0378; J2185; J3370; J3475; J7030; J7050; J7060